=== PATIENT | male | born 2005 | race Caucasian/White ===

== ENCOUNTER 2025-05-15 00:27 | Emergency (ER) | payer OTHER, SELFPAY ==
[2025-05-15 00:33] VITALS: BP 137/89; BP 142/108; PULSE 106; PULSE 93; RESP 16; TEMP 36.7; O2SAT 99; BMI 27.9
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
[2025-05-15 00:59] VITALS: BP 137/89; PULSE 93; RESP 16; TEMP 36.7; O2SAT 99
== END 2025-05-15 01:00 | disposition home or self-care (01) ==
LOC: HO.ED 00:55
PROVIDERS: Emergency Provider Emergency Medicine
DX: Z04.1 Encounter for examination and observation following transport accident (principal); F10.920 Alcohol use, unspecified with intoxication, uncomplicated; Y90.9 Presence of alcohol in blood, level not specified
CPT/HCPCS: 99282; 99284